=== PATIENT | male | born 2000 | race Caucasian/White ===

== ENCOUNTER → 2021-04-28 | Outpatient (RCR) | payer OTHER | END | disposition home or self-care (01) | LOC: WSPT | DX: Z98.890 Other specified postprocedural states (principal) ==

== ENCOUNTER 2021-05-28 15:45 | Outpatient (RCR) | payer OTHER | END 2021-05-29 | disposition home or self-care (01) | LOC: WSPT | DX: Z98.890 Other specified postprocedural states (principal) ==

== ENCOUNTER 2021-06-16 15:45 | Outpatient (RCR) | payer OTHER | END 2021-06-16 15:54 | disposition home or self-care (01) | LOC: WSPT 15:45 | DX: M25.551 Pain in right hip (principal); Z96.641 Presence of right artificial hip joint ==